=== PATIENT | female | born 1980 | race Two or more races ===

== ENCOUNTER 2020-03-03 08:10 | Emergency (ER) | payer MEDICAID ==
[~2020-03-03] VITALS: Ht 167.6 cm; Wt 82.0 kg
[2020-03-03] MEDS ORDERED: KETOROLAC 30MG/ML VIAL IV STA (08:52)
[2020-03-03] MEDS ORDERED: SODIUM CHLORIDE 0.9% 1,000 ML IV ONE (09:00)
[2020-03-03 09:13] LABS: BASOPHILS % 0.4 % (0.0-2.0); EOSINOPHILS % 1.1 % (0.0-5.0); HEMATOCRIT. 34.6 % (36.0-48.0); HEMOGLOBIN. 11.3 g/dL (12.0-16.0); LYMPHOCYTES % 43.9 % (20.0-50.0); MEAN CORPUSCULAR HEMOGLOBIN 29.5 pg (28.0-32.0); MEAN CORPUSCULAR VOLUME 90.3 fL (81.0-99.0); MONOCYTES % 7.2 % (2.0-8.0); NEUTROPHILS % 47.4 % (40.0-76.0); PLATELET 155 x1000/uL (130-400); RED BLOOD CELL COUNT 3.83 mill/uL (4.2-5.4); RED CELL DISTRIBUTION WIDTH 16.2 % (11.6-14.6)
[2020-03-03 09:20] LABS: CHLORIDE 108 mEq/L (98-107)
[2020-03-03 09:30] LABS: ETHANOL BLOOD < 10 mg/dL
[2020-03-03 09:31] LABS: PROTHROMBIN TIME 10.2 sec (9.6-11.0)
[2020-03-03 09:48] LABS: HCG SCREEN NEGATIVE
[2020-03-03 10:52] LABS: CLARITY URINE CLEAR (CLEAR); COLOR URINE YELLOW (YELLOW); KETONES URINE NEGATIVE (NEGATIVE); LEUKOCYTE ESTERASE URINE TRACE (NEGATIVE); NITRITE URINE POSITIVE (NEGATIVE); OCCULT BLOOD URINE 2+ (NEGATIVE); PH URINE 6.5 (4.5-8.0); PROTEIN URINE 3+ (NEGATIVE); UROBILINOGEN URINE 0.2 E.U./dL (0.2-1.0)
[2020-03-03 11:03] LABS: *BARBITURATES SCREEN URINE NEGATIVE (NEGATIVE); *BENZODIAZEPINES SCREEN URINE NEGATIVE (NEGATIVE); *COCAINE SCREEN URINE NEGATIVE (NEGATIVE); METHADONE URINE SCREEN NEGATIVE (NEGATIVE)
[2020-03-03 11:04] LABS: CANNABINOID URINE SCREEN NEGATIVE (NEGATIVE); OPIATES URINE SCREEN NEGATIVE (NEGATIVE); PHENCYCLIDINE URINE SCREEN NEGATIVE (NEGATIVE)
[2020-03-03 11:05] LABS: *AMPHETAMINES SCREEN URINE PRESUMTIVE POSITIVE (NEGATIVE)
[2020-03-03] MEDS ORDERED: CEFTRIAXONE 1 G PREMIX 50 ML IV ONE (11:45)
[2020-03-03 13:10] VITALS: BP 144/92
== END 2020-03-03 13:55 | disposition short-term general hospital (02) ==
LOC: ER 08:10 → EDSEX 08:10 → ER 13:55
DX: S02.119A Unspecified fracture of occiput, initial encounter for closed fracture (principal); V49.9XXA Car occupant (driver) (passenger) injured in unspecified traffic accident, initial encounter; Y93.89 Activity, other specified; Y92.89 Other specified places as the place of occurrence of the external cause; Y99.8 Other external cause status
CPT/HCPCS: 36415; 70450; 71045; 72125; 74176; 80053; 80305; 80320; 81003; 83690; 84703; 85025; 85610; 87077; 87086; 87186; 96361; 96365; 96375; 99285; J0696; J1885; J7030; G0480

== ENCOUNTER 2020-07-21 20:17 | Emergency (ER) | payer MEDICAID ==
[~2020-07-21] VITALS: Ht 182.9 cm; Wt 78.0 kg
[2020-07-21] MEDS ORDERED: ACETAMINOPHEN 325MG TABLET PO STA (20:44)
[2020-07-21] MEDS ORDERED: FAMOTIDINE 20MG TABLET PO ONE (20:45)
[2020-07-21 21:13] LABS: ETHANOL BLOOD < 10 mg/dL
[2020-07-21 23:37] LABS: *BARBITURATES SCREEN URINE NEGATIVE (NEGATIVE); *BENZODIAZEPINES SCREEN URINE NEGATIVE (NEGATIVE); *COCAINE SCREEN URINE NEGATIVE (NEGATIVE); CANNABINOID URINE SCREEN NEGATIVE (NEGATIVE); METHADONE URINE SCREEN NEGATIVE (NEGATIVE); OPIATES URINE SCREEN NEGATIVE (NEGATIVE); PHENCYCLIDINE URINE SCREEN NEGATIVE (NEGATIVE)
[2020-07-21 23:48] LABS: *AMPHETAMINES SCREEN URINE PRESUMTIVE POSITIVE (NEGATIVE)
[2020-07-22 01:25] VITALS: BP 144/78
== END 2020-07-22 01:54 | disposition home or self-care (01) ==
LOC: ER 20:17
DX: R07.89 Other chest pain (principal); R45.1 Restlessness and agitation; R00.0 Tachycardia, unspecified; R03.0 Elevated blood-pressure reading, without diagnosis of hypertension; F91.8 Other conduct disorders; F64.0 Transsexualism; Z71.89 Other specified counseling
CPT/HCPCS: 36415; 71045; 80305; 80320; 84484; 93005; 99285; G0480

== ENCOUNTER 2020-07-22 04:18 | Emergency (ER) | payer MEDICAID ==
[~2020-07-22] VITALS: Ht 185.4 cm; Wt 82.0 kg
[2020-07-22 05:33] VITALS: BP 135/85
[2020-07-22 08:54] LABS: CHLORIDE 107 mEq/L (98-107)
[2020-07-22 08:55] LABS: BASOPHILS % 0.5 % (0.0-2.0); EOSINOPHILS % 3.1 % (0.0-5.0); HEMATOCRIT. 30.7 % (36.0-48.0); HEMOGLOBIN. 9.5 g/dL (12.0-16.0); LYMPHOCYTES % 25.7 % (20.0-50.0); MEAN CORPUSCULAR HEMOGLOBIN 28.6 pg (28.0-32.0); MEAN CORPUSCULAR VOLUME 92.5 fL (81.0-99.0); MEAN PLATELET VOLUME 7.3 fl (7.4-10.4); MONOCYTES % 6.6 % (2.0-8.0); NEUTROPHILS % 64.1 % (40.0-76.0); PLATELET 423 x1000/uL (130-400); RED BLOOD CELL COUNT 3.32 mill/uL (4.2-5.4); RED CELL DISTRIBUTION WIDTH 18.6 % (11.6-14.6)
[2020-07-22 08:57] LABS: PROTHROMBIN TIME 10.9 sec (9.6-11.0)
== END 2020-07-22 09:50 | disposition home or self-care (01) ==
LOC: ER 04:18
DX: R53.1 Weakness (principal); R10.11 Right upper quadrant pain; B15.9 Hepatitis A without hepatic coma; B20 Human immunodeficiency virus [HIV] disease; R53.83 Other fatigue; D64.9 Anemia, unspecified; I10 Essential (primary) hypertension; E11.9 Type 2 diabetes mellitus without complications; J45.909 Unspecified asthma, uncomplicated; Z59.0 Homelessness; Z79.899 Other long term (current) drug therapy; Z98.890 Other specified postprocedural states
CPT/HCPCS: 36415; 71045; 76705; 80053; 85025; 99285

== ENCOUNTER 2020-12-09 19:46 | Inpatient (IN) | payer SELFPAY ==
[~2020-12-09] VITALS: Ht 185.4 cm; Wt 90.0 kg
[2020-12-09] MEDS ORDERED: ACETAMINOPHEN 325MG TABLET PO STA (20:44)
[2020-12-09] MEDS ORDERED: IBUPROFEN 600MG TABLET PO STA (20:44)
[2020-12-09 21:31] LABS: BASOPHILS % 0.4 % (0.0-2.0); EOSINOPHILS % 3.9 % (0.0-5.0); HEMATOCRIT. 36.7 % (36.0-48.0); HEMOGLOBIN. 12.1 g/dL (12.0-16.0); LYMPHOCYTES % 20.8 % (20.0-50.0); MEAN CORPUSCULAR HEMOGLOBIN 27.4 pg (28.0-32.0); MEAN CORPUSCULAR VOLUME 83.1 fL (81.0-99.0); MEAN PLATELET VOLUME 8.3 fl (7.4-10.4); MONOCYTES % 9.3 % (2.0-8.0); NEUTROPHILS % 65.6 % (40.0-76.0); PLATELET 192 x1000/uL (130-400); RED BLOOD CELL COUNT 4.42 mill/uL (4.2-5.4); RED CELL DISTRIBUTION WIDTH 18.9 % (11.6-14.6)
[2020-12-09 21:33] LABS: CHLORIDE 112 mEq/L (98-107)
[2020-12-09 21:57] LABS: HCG SCREEN NEGATIVE
[2020-12-09] MEDS ORDERED: SODIUM CHLORIDE 0.9% 1,000 ML IV ONE (22:30)
[2020-12-09] MEDS ORDERED: ACETAMINOPHEN 325MG TABLET PO PRN ×2 (23:30)
[2020-12-09] MEDS ORDERED: HYDROCODONE/ACETAMINOPHEN 10/325MG TABLET PO PRN (23:30)
[2020-12-09] MEDS ORDERED: MAGNESIUM/ALUMINUM HYDROXIDE/SIMETHICONE 30ML UDC PO PRN (23:30)
[2020-12-09] MEDS ORDERED: KETOROLAC 30MG/ML VIAL IV PRN (23:30)
[2020-12-09] MEDS ORDERED: ONDANSETRON HCL 4MG/2ML INJ IV PRN (23:30)
[2020-12-09] MEDS ORDERED: NALOXONE HCL 0.4MG/ML VIAL IV PRN (23:45)
[2020-12-10] MEDS ORDERED: SODIUM CHLORIDE 0.9% 1,000 ML IV SCH
[2020-12-10 06:16] VITALS: BP 116/75
[2020-12-10] MEDS ORDERED: OMEPRAZOLE 20MG CAPSULE EXTENDED RELEASE PO SCH (07:34)
== END 2020-12-10 07:37 | disposition left against medical advice (07) | DRG 203 ==
LOC: ER 19:46 → MICUSO 23:00 → CANBEDREQ 12-10 07:31
PROVIDERS: ADMIT Internal Medicine; ATTEND Internal Medicine
DX: R07.89 Other chest pain (principal); N17.9 Acute kidney failure, unspecified; B34.9 Viral infection, unspecified; Z20.822 Contact with and (suspected) exposure to COVID-19; Z53.29 Procedure and treatment not carried out because of patient's decision for other reasons
CPT/HCPCS: 36415; 71045; 80053; 84703; 85025; 93005; 99285; J7030